=== PATIENT | female | born 1980 | race Caucasian/White ===

== ENCOUNTER → 2021-03-09 14:37 | Outpatient (CLI) | payer OTHER, SELFPAY | PROVIDERS: Visit Provider Nurse Practitioner | DX: Z20.822 Contact with and (suspected) exposure to COVID-19 (principal) | CPT/HCPCS: C9803; U0003; U0005 ==

== ENCOUNTER 2021-04-01 18:55 | Emergency (ER) | payer OTHER, SELFPAY ==
[2021-04-01 19:45] VITALS: BP 151/111; PULSE 91; RESP 20; TEMP 36.9; O2SAT 96; BMI 25.0
--- NOTE | 2021-04-01 20:26 | HMH.EDUTC ---
[facility] Disposition Clinical Impression: Bronchitis Disposition: Home, Self-Care Condition on Discharge: Good Instructions: Acute Bronchitis Additional Instructions: Start antibiotic today. Be sure to complete entire prescription even if feeling better Tylenol and ibuprofen as needed for pain or fever Humidifier/vaporizer/hot steamy shower Follow-up with primary care tomorrow. Follow-up immediately in the ER of the [facility] for new or worsening symptoms or no noticeable improvement over the next 48-72 hours. Stop smoking Inhaler every 4-6 hours as needed. Should help open airways improved cough, wheezing, shortness of breath Prescriptions: Fluticasone Propionate [Flonase 50mcg nasal spray 16gm] 1 spr NS DAILY 14 Days #9.9 ml Transmission Status: Pending to [facility] Azithromycin [Zithromax 250mg tab] 250 mg PO DIRECTED #6 tab Transmission Status: Pending to [facility] Referrals: Provider,Referral, [Primary Care Provider] - Forms: Work/School Release Time of Disposition: 20:30 Medical Decision Making - Rachid Inquiry Pt receiving controlled substance: No [facility] HPI - General Chief complaint: Urgent Treatment Center Stated complaint: chest congestion, sinus pressure, cough Time Seen by Provider: 04/01/21 20:26 Mode of Arrival: Ambulatory Source of Information: Patient Limitations: No Limitations - History of Present Illness Provider Complaint: 40 yr old female presents for coughing up green sputum, tightness with coughing,sinus pressure,sinus pain, hughes and tiredness for 1 week and not improving - Related Data Previous Rx's Medication Instructions Recorded Azithromycin [Zithromax 250mg 250 mg PO DIRECTED #6 tab 04/01/21 tab] Fluticasone Propionate [Flonase 1 spr NS DAILY 14 Days #9.9 ml 04/01/21 50mcg nasal spray 16gm] [facility] History - Hepatitis A Screen Attestation statement:: This patient has been screened for Hepatitis A risk factors. I have reviewed the patient's past medical history: Yes ROS Obtained: Yes Systems reviewed as appropriate & no additional complaints - Constitutional Constitutional: Reports system reviewed and no additional complaints, except as docu, Reports chills, Reports fatigue, Reports poor appetite - Eyes Eyes: Reports system reviewed and no additional complaints, except as docu, Denies blind spots - ENT Ears, Nose, Mouth, and Throat: Reports system reviewed and no additional complaints, except as docu, Denies dizziness - Cardiovascular Cardiovascular: Reports system reviewed and no additional complaints, except as docu, Denies chest pain - Respiratory Respiratory: Reports system reviewed and no additional complaints, except as docu, Reports change in phlegm color, Reports chest congestion, Reports cough - Gastrointestinal Gastrointestingal: Reports: system reviewed and no additional complaints, except as docu. Denies: abdominal pain - Genitourinary Female Genitourinary: Reports system reviewed and no additional complaints, except as docu - Musculoskeletal Musculoskeletal: Reports system reviewed and no additional complaints, except as docu, Denies joint pain - Integumentary/Breasts Skin/Breast: Reports system reviewed and no additional complaints, except as docu, Denies rash - Neurologic Neurologic: Reports system reviewed and no additional complaints, except as docu, Denies dizziness - Endocrine Endocrine: Reports system reviewed and no additional complaints, except as docu, Reports fatigue - Hematologic/Lymphatic Henatologic/Lymphatic: Reports system reviewed and no additional complaints, except as docu, Denies easy bruising - Allergic/Immunologic Allergic/Immunologic: Reports system reviewed and no additional complaints, except as docu, Denies itchy eyes Physical Exam - General General appearance: alert, in no apparent distress - Head Head exam: atraumatic, normocephalic, normal inspection -
[2021-04-01 20:39] VITALS: BP 151/111; PULSE 91; RESP 20; TEMP 36.9; O2SAT 96
== END 2021-04-01 20:49 | disposition home or self-care (01) ==
PROVIDERS: Emergency Provider Nurse Practitioner Family
DX: J20.9 Acute bronchitis, unspecified (principal)
CPT/HCPCS: 96372; 99202; G0463

== ENCOUNTER 2022-06-28 15:25 | Emergency (ER) | payer BC, SELFPAY ==
[2022-06-28 15:35] VITALS: BP 126/90; PULSE 88; RESP 16; TEMP 37.1; O2SAT 96; BMI 23.6
[2022-06-28 15:54] LABS: UTC Strep Screen (Rapid) Negative (Negative)
[2022-06-28 15:55] VITALS: BP 126/90; PULSE 88; RESP 16; TEMP 37.1; O2SAT 96
--- NOTE | 2022-06-28 16:33 | EXP.UTC ---
Discharge Plan Disposition Patient Disposition: Home, Self-Care Condition: Good Prescriptions Prescriptions: New nifcnsyhnzprqca-xsxubaxzb-GR [Bromfed DM] 2-30-10 mg/5 mL syrup 10 ml PO Q4-6H PRN (Reason: cold symptoms) Qty: 120 0RF Debrox 6.5 % drops 5 drp otic (ear) Q12H 4 Days Qty: 15 0RF No Action azithromycin 250 MG tablet 250 mg PO DIRECTED Qty: 6 0RF Rx Instructions: one (1) tablet day #2 thru #5 first dose given in ed fluticasone propionate 120 SPR/BOT bottle 1 spr NS DAILY 14 Days Qty: 9.9 0RF Referrals Follow up/Referrals: Provider,Referral, MD [Primary Care Provider] - See instructions Clinical Impressions Clinical Impression: Acute upper respiratory infection, Impacted cerumen of right ear Instructions Patient Instructions: DI for Cerumen Impaction, DI for Viral Upper Respiratory Infection -- Adult Discharge ED [place] Odalis [place] [facility] [place] General Stated complaint: sore throat, Ears,CASTELLANO Mode of Arrival: Ambulatory Source of Information: Patient Limitations: No Limitations Time Seen by Provider: 06/28/22 16:33 Description of Symptoms (Recalled from Triage Doc. by RN): PATIENT C/O SORE/SWOLLEN THROAT WITH DISCHARGE, HEADACHE, AND EAR PAIN HEENT Symptoms (Recalled from RN notes): Yes Resp Symptoms (Recalled from RN notes): No Skin Symptoms (Recalled from RN notes): No MS Symptoms (Recalled from RN notes): No Functional Status (Recalled from RN notes): WNL Related Data Previous Rx's Medication Instructions Recorded azithromycin 250 mg tablet 250 mg PO DIRECTED #6 tabs 04/01/21 fluticasone propionate 50 1 spr NS DAILY 14 days #9.9 mL 04/01/21 mcg/actuation nasal spray,suspension xikujhoesdqdtpe-filpqdummffpwsp-EH 10 ml PO Q4-6H PRN cold symptoms 06/28/22 2 mg-30 mg-10 mg/5 mL oral syrup #120 mL (Bromfed DM) carbamide peroxide 6.5 % ear drops 5 drp otic (ear) Q12H 4 days #15 mL 06/28/22 (Debrox) Allergies Allergy/AdvReac Type Severity Reaction Status Date / Time PAIN MEDICATIONS Allergy Uncoded 04/01/21 20:29 Worker's Comp Is this a Worker's Comp case?: No [facility] Disclaimer: The information contained in this section may have been updated after the patient was seen, as this information can be updated by other users. Social History Smoking Status: Unknown if ever smoked alcohol intake: current current occupational status: employed Travel in the last 8 weeks: None ROS Obtained: Yes All systems reviewed & no additional complaints except as documented Constitutional Constitutional: Reports fever(s), Reports headache(s) and Reports malaise Eyes Eyes: Reports system reviewed and no additional complaints, except as documented ENT Ears, Nose, Mouth, and Throat: Reports as per HPI, Reports headache(s), Reports nasal discharge, Reports odynophagia, Reports post nasal drip and Reports sore throat Cardiovascular Cardiovascular: Reports system reviewed and no additional complaints, except as documented Respiratory Respiratory: Reports as per HPI and Reports non-productive cough Gastrointestinal Gastrointestingal: Reports system reviewed and no additional complaints, except as documented and odynophagia Genitourinary Female Genitourinary: Reports system reviewed and no additional complaints, except as documented Musculoskeletal Musculoskeletal: Reports system reviewed and no additional complaints, except as documented Integumentary/Breasts Skin/Breast: Reports system reviewed and no additional complaints, except as documented Neurologic Neurologic: Reports system reviewed and no additional complaints, except as documented and Reports headache(s) Endocrine Endocrine: Reports system reviewed and no additional complaints, except as documented Hematologic/Lymphatic Henatologic/Lymphatic: Reports system reviewed and no additional complaints, except as documented Allergic/Immunologic Allergic/Immunologic: Reports system reviewed and no a
== END 2022-06-28 16:55 | disposition home or self-care (01) ==
PROVIDERS: Emergency Provider Nurse Practitioner Family
DX: J06.9 Acute upper respiratory infection, unspecified (principal); H61.23 Impacted cerumen, bilateral
CPT/HCPCS: 87880; 99212; 99214; G0463

== ENCOUNTER 2023-06-14 14:55 | Emergency (ER) | payer BC, SELFPAY ==
[2023-06-14 15:05] VITALS: BP 155/84; PULSE 96; RESP 18; TEMP 36.8; O2SAT 98; BMI 22.2
--- NOTE | 2023-06-14 15:30 | EXP.UTC ---
Discharge Plan Disposition Patient Disposition: Home, Self-Care Prescriptions Prescriptions: New cefdinir 300 mg capsule 300 mg PO Q12H Qty: 20 0RF No Action fluticasone propionate 120 SPR/BOT bottle 1 spr NS DAILY 14 Days Qty: 9.9 0RF desogestrel-ethinyl estradiol [Apri] 0.15-0.03 mg tablet 1 tab PO DAILY Referrals Follow up/Referrals: Manolo Hopkins II, MD [Primary Care Provider] - See instructions Clinical Impressions Clinical Impression: Acute streptococcal pharyngitis, Acute upper respiratory infection Instructions Patient Instructions: DI for Strep Throat, DI for Viral Upper Respiratory Infection -- [place] Discharge ED [place] Odalis Barr [facility] [place] General Stated complaint: sore throat head ache congestion cough Mode of Arrival: Ambulatory Source of Information: Patient Limitations: No Limitations Time Seen by Provider: 06/14/23 15:29 Description of Symptoms (Recalled from Triage Doc. by RN): Pt's symptoms are sore and scratchy throat, CASTELLANO, congestion, itchy eyes, drainage, fatigue, and cough. This has been going on over a week. HEENT Symptoms (Recalled from RN notes): Yes Resp Symptoms (Recalled from RN notes): No Skin Symptoms (Recalled from RN notes): No MS Symptoms (Recalled from RN notes): No Functional Status (Recalled from RN notes): n/a History of Present Illness Provider Complaint: Pt relates that for the last week she has had a cough, runny nose, itchy eyes, and fatigue. She reports that last 2 days she has had a very sore throat and it feels like razor blades when she swallows. Related Data Home Medications Medication Instructions Recorded Confirmed desogestrel 0.15 mg-ethinyl 1 tab PO DAILY 06/14/23 06/14/23 estradiol 0.03 mg tablet (Apri) Previous Rx's Medication Instructions Recorded fluticasone propionate 50 1 spr NS DAILY 14 days #9.9 mL 04/01/21 mcg/actuation nasal spray,suspension cefdinir 300 mg capsule 300 mg PO Q12H #20 caps 06/14/23 Allergies Allergy/AdvReac Type Severity Reaction Status Date / Time PAIN MEDICATIONS Allergy Uncoded 04/01/21 20:29 Worker's Comp Is this a Worker's Comp case?: No [facility] Disclaimer: The information contained in this section may have been updated after the patient was seen, as this information can be updated by other users. Social History Smoking Status: Unknown if ever smoked alcohol intake: current current occupational status: employed Travel in the last 8 weeks: None ROS Obtained: Yes All systems reviewed & no additional complaints except as documented Constitutional Constitutional: Reports system reviewed and no additional complaints, except as documented, Reports fatigue, Reports headache(s) and Reports malaise Eyes Eyes: Reports system reviewed and no additional complaints, except as documented and Reports itchy eyes ENT Ears, Nose, Mouth, and Throat: Reports system reviewed and no additional complaints, except as documented, Reports headache(s), Reports nasal congestion, Reports nasal discharge, Reports odynophagia, Reports post nasal drip, Reports sinus pain, Reports sinus pressure and Reports sore throat Cardiovascular Cardiovascular: Reports system reviewed and no additional complaints, except as documented Respiratory Respiratory: Reports system reviewed and no additional complaints, except as documented and Reports non-productive cough Gastrointestinal Gastrointestingal: Reports system reviewed and no additional complaints, except as documented and odynophagia Genitourinary Female Genitourinary: Reports system reviewed and no additional complaints, except as documented Musculoskeletal Musculoskeletal: Reports system reviewed and no additional complaints, except as documented Integumentary/Breasts Skin/Breast: Reports system reviewed and no additional complaints, except as documented Neurologic Neurologic: Reports system reviewed and no additional complaints, except as documented and Reports headache(s) Endocrine Endocrine: Reports system reviewed and no additional complaints, except as documented and Reports fatigue Hematologic/Lymphatic Henatologic/Lymphatic: Reports system reviewed and no additional complaints, except as documented Allergic/Immunologic Allergic/Immunologic: Reports system reviewed and no additional complaints, except as documented and Reports itchy eyes Physical Exam General General appearance: alert Comment: ill appearing Head Head exam: atraumatic and normocephalic Eye Eye exam: Present normal appearance Expanded ENT Exam External ear exam: Present normal external inspection Nose exam: Present sinus tenderness Nasal speculum exam: Bilateral: other (clear drainage; edematous mucosa) Mouth exam: Present other (white coating on tongue. Petechiae noted on palate) Teeth exam: Present normal inspection Throat exam: Present tonsillar erythema, tonsillomegaly and muffled voice Neck Neck exam: Present normal inspection; Absent lymphadenopathy Chest Chest inspection: Present normal inspection and symmetric chest wall rise Respiratory Respiratory exam: Present normal lung sounds bilaterally Cardiovascular Cardiovascular exam: Present regular rate and normal rhythm Abdominal Exam Abdominal exam: Present soft and normal bowel sounds Extremities Exam Extremities exam: Present normal inspection Back Exam Back exam: Present normal inspection Neurological Exam Neurological exam: Present alert and oriented X3 Psychiatric Psychiatric exam: Present normal affect and normal mood Skin Skin exam: Present warm, dry and intact Lymphatic Lymphatic Findings: no adenopathy Medical Decision Making Rachid Inquiry Pt receiving controlled substance: No Rachid was queried for this patient: No Vital Signs: 06/14/23 15:05 Temperature 98.2 F Temperature Source Oral Pulse Rate [Right Radial] 96 H Respiratory Rate 18 Blood Pressure [Right Arm] 180/90 H Blood Pressure Mean [Right Arm] 120 Blood Pressure Source [Right Arm] Automatic Cuff Blood Pressure Position [Right Arm] Sitting 02 Sat by Pulse Oximetry 98 Oxygen Delivery Method Room Air Lab Data Lab results reviewed: Yes I reviewed the patient's lab results.
[2023-06-14 15:39] LABS: UTC Strep Screen (Rapid) Positive (Negative)
[2023-06-14 15:47] VITALS: BP 155/84; PULSE 96; RESP 18; TEMP 36.8; O2SAT 98
== END 2023-06-14 15:47 | disposition home or self-care (01) ==
PROVIDERS: Emergency Provider Nurse Practitioner Family; PCP Family Medicine
DX: J02.0 Streptococcal pharyngitis (principal); R07.0 Pain in throat; R05.9 Cough, unspecified; R09.81 Nasal congestion; R53.83 Other fatigue
CPT/HCPCS: 87880; 99212; 99214; G0463

== ENCOUNTER 2023-08-13 17:44 | Emergency (ER) | payer BC, SELFPAY ==
[2023-08-13 18:00] VITALS: BP 143/85; PULSE 91; RESP 18; TEMP 36.8; O2SAT 98; BMI 25.0
[2023-08-13 18:07] LABS: UTC Strep Screen (Rapid) Negative (Negative)
--- NOTE | 2023-08-13 18:15 | EXP.UTC ---
Discharge Plan Disposition Patient Disposition: Home, Self-Care Condition: Good Prescriptions Prescriptions: New benzonatate 100 mg capsule 100 mg PO TIDP PRN (Reason: Cough) Qty: 30 0RF methylprednisolone 4 mg Tablets,Dose Pack 4 mg PO DIRECTED 6 Days Qty: 21 0RF Rx Instructions: Take 1 pack as directed for 6 days azithromycin [Zithromax] 250 mg tablet 250 mg PO UD DOSE PK Qty: 6 0RF Rx Instructions: Take two (2) tablets today, then one (1) tablet days #2 thru #5 No Action desogestrel-ethinyl estradiol [Apri] 0.15-0.03 mg tablet 1 tab PO DAILY fexofenadine 60 mg tablet 60 mg PO DAILY amlodipine 5 mg tablet 5 mg PO DAILY pantoprazole 40 mg tablet,delayed release (DR/EC) 40 mg PO DAILY Referrals Follow up/Referrals: Manolo Hopkins II, MD [Primary Care Provider] - See instructions Activity Restrictions/Add. Instructions Additional Instructions/Restrictions: Drink plenty of fluids. Take tylenol or ibuprofen for pain or fever. Take the medications as directed. Follow up with your regular doctor. GO TO THE ER FOR ANY WORSENING SYMPTOMS Clinical Impressions Clinical Impression: Bronchitis Instructions Patient Instructions: Acute Bronchitis, DI for Acute Bronchitis Discharge ED Provider: Gabriele Tran [facility] General Stated complaint: Chest congestion,sore throat Mode of Arrival: Ambulatory Source of Information: Patient Limitations: No Limitations Time Seen by Provider: 08/13/23 18:15 Description of Symptoms (Recalled from Triage Doc. by RN): Pt's symptoms are sore throat, congestion, runny nose, CASTELLANO, and productive cough. HEENT Symptoms (Recalled from RN notes): Yes Resp Symptoms (Recalled from RN notes): No Skin Symptoms (Recalled from RN notes): No MS Symptoms (Recalled from RN notes): No Functional Status (Recalled from RN notes): n/a Related Data Home Medications Medication Instructions Recorded Confirmed desogestrel 0.15 mg-ethinyl 1 tab PO DAILY 06/14/23 08/13/23 estradiol 0.03 mg tablet (Apri) amlodipine 5 mg tablet 5 mg PO DAILY 08/13/23 08/13/23 fexofenadine 60 mg tablet 60 mg PO DAILY 08/13/23 08/13/23 pantoprazole 40 mg tablet,delayed 40 mg PO DAILY 08/13/23 08/13/23 release Previous Rx's Medication Instructions Recorded azithromycin 250 mg tablet 250 mg PO UD DOSE PK #6 tabs 08/13/23 (Zithromax) benzonatate 100 mg capsule 100 mg PO TIDP PRN Cough #30 caps 08/13/23 methylprednisolone 4 mg tablets in 4 mg PO DIRECTED 6 days #21 tabs 08/13/23 a dose pack Allergies Allergy/AdvReac Type Severity Reaction Status Date / Time acetaminophen [From Vicodin] Allergy Verified 08/13/23 18:09 hydrocodone [From Vicodin] Allergy Verified 08/13/23 18:09 oxycodone [From Percocet] Allergy Verified 08/13/23 18:09 Worker's Comp Is this a Worker's Comp case?: No [facility] Disclaimer: The information contained in this section may have been updated after the patient was seen, as this information can be updated by other users. Social History Smoking Status: Unknown if ever smoked alcohol intake: current alcohol intake frequency: 0-2 drinks per day current occupational status: employed Travel in the last 8 weeks: None ROS Obtained: Yes All systems reviewed & no additional complaints except as documented Constitutional Constitutional: Reports poor appetite Eyes Eyes: Reports system reviewed and no additional complaints, except as documented ENT Ears, Nose, Mouth, and Throat: Reports as per HPI Cardiovascular Cardiovascular: Reports system reviewed and no additional complaints, except as documented and Denies chest pain Respiratory Respiratory: Denies shortness of breath, Reports chest congestion, Reports cough, Denies stridor and Denies wheezing Gastrointestinal Gastrointestingal: Reports system reviewed and no additional complaints, except as documented; Denies abdominal pain, diarrhea or vomiting Musculoskeletal Musculoskeletal: Reports system reviewed and no additional complaints, except as documented and Denies arthralgias Integumentary/Breasts Skin/Breast: Reports system reviewed and no additional complaints, except as documented and Denies rash Neurologic Neurologic: Denies paresthesias Allergic/Immunologic Allergic/Immunologic: Denies wheezing Physical Exam General General appearance: alert and in no apparent distress Eye Eye exam: Present normal appearance, PERRL and EOMI ENT ENT exam: Present mucous membranes moist and normal external ear exam Expanded ENT Exam External ear exam: Present normal external inspection TM/Canal exam: Bilateral TM: erythema and bulging Nose exam: Absent sinus tenderness Nasal speculum exam: Bilateral: normal Mouth exam: Present normal external inspection; Absent drooling Teeth exam: Present normal inspection Throat exam: Present tonsillar erythema and tonsillomegaly Neck Neck exam: Present normal inspection, full ROM and trachea midline; Absent tenderness, lymphadenopathy or thyromegaly Chest Chest inspection: Present normal inspection and symmetric chest wall rise; Absent tenderness or rash Respiratory Respiratory exam: Present normal lung sounds bilaterally; Absent respiratory distress, wheezes, stridor or accessory muscle use Cardiovascular Cardiovascular exam: Present regular rate, normal rhythm and normal heart sounds Abdominal Exam Abdominal exam: Present soft; Absent distention, tenderness, guarding, rebound or rigidity Extremities Exam Extremities exam: Present normal inspection, full ROM and normal capillary refill; Absent tenderness or calf tenderness Back Exam Back exam: Present normal inspection and full ROM; Absent tenderness Neurological Exam Neurological exam: Present alert and oriented X3 Psychiatric Psychiatric exam: Present normal affect and normal mood Skin Skin exam: Present warm, dry, intact and normal color Lymphatic Lymphatic Findings: no adenopathy Medical Decision Making Medical Records Medical records reviewed: No I reviewed the patient's medical records. Rachid Inquiry Pt receiving controlled substance: No Vital Signs: 08/13/23 18:00 Temperature 98.3 F Temperature Source Oral Pulse Rate [Right Radial] 91 H Respiratory Rate 18 Blood Pressure [Right Arm] 143/85 H Blood Pressure Mean [Right Arm] 104 Blood Pressure Source [Right Arm] Automatic Cuff Blood Pressure Position [Right Arm] Sitting 02 Sat by Pulse Oximetry 98 Oxygen Delivery Method Room Air Lab Data Lab results reviewed: Yes I reviewed the patient's lab results. Lab Results 08/13/23 17:59: Strep Scn Rapid Clinic Negative Orders (Tests/Meds): ORDERS Category Date Time Status Strep Screen Confirmation Stat Micro 08/13/23 17:59 Received
[2023-08-13] MEDS: DEXAMETHASONE 4MG/ML 1ML VIAL 8 MG IM (18:51)
[2023-08-13 19:03] VITALS: BP 143/85; PULSE 91; RESP 18; TEMP 36.8; O2SAT 98
== END 2023-08-13 19:03 | disposition home or self-care (01) ==
PROVIDERS: Emergency Provider Nurse Practitioner Family; PCP Family Medicine
DX: J20.9 Acute bronchitis, unspecified (principal); R07.0 Pain in throat; R51.9 Headache, unspecified; R09.81 Nasal congestion; R05.9 Cough, unspecified
CPT/HCPCS: 87880; 96372; 99212; 99214; G0463